=== PATIENT | female | born 1960 | race Caucasian/White ===

== ENCOUNTER 2021-03-11 11:50 | Emergency (ER) | payer BC, SELFPAY ==
--- NOTE | ~2021-03-11 | XR_ITS ---
EXAMINATION: XR chest 2V DATE: 03/11/2021 12:33 INDICATION: Cough. TECHNIQUE: Frontal and lateral views of the chest were obtained. COMPARISON: None. FINDINGS: There is mild scarring at the lung apices. No pleural effusion or pneumothorax. The heart s ize is normal. IMPRESSION: 1. Mild scarring at the lung apices. Reviewed, dictated and finalized at location A.
[2021-03-11 12:02] VITALS: BP 146/81; PULSE 87; RESP 18; TEMP 36.9; O2SAT 97
--- NOTE | 2021-03-11 12:25 | ED.UPPEXIN ---
HPI - Extremity Injury (Upper) General Chief Complaint: Upper Respiratory Infection Stated Complaint: Cough,Congestion,Ear Pain Time Seen by Provider: 03/11/21 12:13 Source: patient and RN notes reviewed Mode of arrival: ambulatory Limitations: no limitations History of Present Illness HPI narrative: Patient presents today complaining of a 2-day history of chest tightness with barky cough, shortness of breath, subjective fever, chills, body aches, rhinorrhea. Denies sore throat. Patient has had both COVID-19 vaccines. Denies any history of asthma or COPD. Denies history of seasonal allergies. She has been taking DayQuil for her symptoms without much relief. 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 Related Data Allergies Allergy/AdvReac Type Severity Reaction Status Date / Time No Known Allergies Allergy Mild Unverified 03/21/09 14:04 Review of Systems Review of Systems: Narrative: CONSTITUTIONAL: Denies sweats.+ Body aches, chills, subjective fever EYES: Denies visual changes, redness, or discharge. ENT: Denies sore throat. + Congestion rhinorrhea, bilateral ear pain. CARDIOVASCULAR: Denies chest pain, palpitations, or edema. RESPIRATORY: + Barky cough, chest tightness, shortness of breath GASTROINTESTINAL: Denies abdominal pain, nausea, vomiting, or diarrhea. GENITOURINARY: Denies dysuria or hematuria. SKIN: Denies rash, itching, or wounds. MUSCULOSKELETAL: Denies back pain, joint pain, or myalgia. NEUROLOGIC: Denies headache, numbness, tingling, or weakness. PSYCH: Denies depression or anxiety. PMFSH Comments At time of signature, I have reviewed and agree with nursing past medical, surgical, social and family history unless otherwise noted. Please see nursing chart for further information. There is no relevant family history pertinent to the presenting complaint Exam Narrative: Exam Narrative: GENERAL: Mildly ill-appearing, well-nourished, and in no acute distress. HEAD: Normocephalic, atraumatic. EYES: EOMI. No redness or drainage. Conjunctivae normal. ENT: Mucous membranes pink and moist. Nares congested with rhinorrhea. TMs normal bilaterally. Throat normal with clear postnasal drainage. Uvula midline. NECK: Normal AROM. Supple. No lymphadenopathy. CHEST: No respiratory distress. Mild inspiratory and expiratory wheezes throughout. Decreased aeration in the bases. HEART: Regular rate and rhythm. No murmur appreciated. Normal peripheral pulses. EXTREMITIES: Normal range of motion. No edema. SKIN: Warm, dry, no rash. Capillary refill normal. Normal skin turgor. NEURO: No focal deficits. Alert and oriented x3. Gait steady. PSYCH: Normal affect. No signs of depression or anxiety. Course Course Emergency Course: 1300-wheezing improved after DuoNeb. X-ray results and plan discussed. Vital Signs Vital signs: Vital Signs Temperature 98.4 F 03/11/21 12:02 Pulse Rate 87 03/11/21 12:02 Respiratory Rate 18 03/11/21 12:02 Blood Pressure 146/81 H 03/11/21 12:02 Pulse Oximetry 97 03/11/21 12:02 Temperature 98.4 F 03/11/21 12:02 Pulse Rate 87 03/11/21 12:02 Respiratory Rate 18 03/11/21 12:02 Blood Pressure 146/81 H 03/11/21 12:02 Pulse Oximetry 97 03/11/21 12:02 Reviewed. Pt has been instructed to follow up with her PCP regarding her elevated blood pressure today. MDM - Extremity Injury (Upper) Differential Diagnosis Differential diagnosis: Likely other (URI, bronchitis, rhinitis, seasonal allergies, otitis media, pneumonia) Imaging Data Radiologist's impression: ITS Impressions Chest X-Ray 03/11/21 12:36 IMPRESSION: 1. Mild scarring at the lung apices. Critical Care Time Critical Care Time Critical Care Time: No Discharge Plan Discharge Clinical Impression: Bronchitis Upper respiratory infection Qualifiers: URI type: unspecified URI Qualified Code(s): J06.9 - Acute upper respi
[2021-03-11] MEDS: ALBUTEROL SULFATE NEB 2.5 MG/3 ML INH INHALATION (12:35)
[2021-03-11] MEDS: IPRATROPIUM BR 0.02% INH SOLN 0.5 MG/2.5 ML VIAL INHALATION (12:35)
== END 2021-03-11 13:09 | disposition home or self-care (01) ==
PROVIDERS: Emergency Provider Nurse Practitioner
DX: J40 Bronchitis, not specified as acute or chronic (principal); J06.9 Acute upper respiratory infection, unspecified
CPT/HCPCS: 71046; 94640; 99213; G0463

== ENCOUNTER 2023-12-07 13:38 | Outpatient (CLI) | payer BC, SELFPAY ==
--- NOTE | ~2023-12-07 | MR_ITS ---
EXAMINATION: MR knee LT wo con DATE: 12/07/2023 14:13 INDICATION: S83.282A - Other tear of lateral meniscus, current injury... TECHNIQUE: Magnetic resonance imaging (MRI) of the left knee was performed without intravenous contra st. Sequences included axial PD-weighted FS FSE, coronal PD-weighted FSE and PD-weighted FS FSE, sagi ttal PD-weighted FSE, and sagittal T2-weighted FS FSE. COMPARISON: X-ray left knee 07/09/2023, images only FINDINGS: Medial compartment: Meniscus and cartilage intact. Lateral compartment: Apical tear of the meniscal body. Cartilage intact. Patellofemoral compartment: Cartilage and retinacula intact. Ligaments and tendons: The ACL is torn. The PCL, MCL, and LCL are intact. Remaining flexor and extensor are intact. Fluid: Moderate volume joint fluid. Osseous/other: No suspicious focal or diffuse marrow signal. Subchondral cysts at the intercondylar notch. Edema in the infrapatellar fat pad at the level of the intercondylar notch. IMPRESSION: Apical tear of the lateral meniscus. Complete ACL tear. Infrapatellar fat pad impingement. Moderate knee joint effusion. Reviewed, dictated and finalized at location K.
== END 2023-12-07 13:39 ==
PROVIDERS: PCP Nurse Practitioner Family; Visit Provider Orthopaedic Surgery
DX: S83.282A Other tear of lateral meniscus, current injury, left knee, initial encounter (principal); S83.512A Sprain of anterior cruciate ligament of left knee, initial encounter; M79.4 Hypertrophy of (infrapatellar) fat pad; M25.462 Effusion, left knee; X58.XXXA Exposure to other specified factors, initial encounter
CPT/HCPCS: 73721

== ENCOUNTER 2024-02-26 08:57 | Outpatient (CLI) | payer BC, SELFPAY ==
--- NOTE | 2024-02-26 11:00 | NEURO_ITS ---
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 # Normal Nerve Conduction Study; No Carpal Tunnel Syndrome or ulnar neuropathy. # Normal needle/EMG exam. # Clinical correlation recommended. Nerve Conduction Studies Anti Sensory Summary Table Stim Site NR Peak (ms) P-T Amp (?V) Site1 Site2 Delta-P (ms) Dist (cm) Arnold (m/s) Left Median Anti Sensory (2-3nd Digit) Wrist 3.1 54.1 Wrist 2-3nd Digit 3.1 14.0 45 Wrist 3.0 75.6 Wrist 2-3nd Digit 3.1 14.0 45 Right Median Anti Sensory (2-3nd Digit) Wrist 2.8 78.4 Wrist 2-3nd Digit 2.8 14.0 50 Wrist 2.9 66.3 Wrist 2-3nd Digit 2.8 14.0 50 Left Radial Anti Sensory (Base 1st Digit) Wrist 1.9 58.8 Wrist Base 1st Digit 1.9 0.0 Right Radial Anti Sensory (Base 1st Digit) Wrist 2.4 27.9 Wrist Base 1st Digit 2.4 0.0 Left Ulnar Anti Sensory (5th Digit) Wrist 2.7 60.3 Wrist 5th Digit 2.7 14.0 52 Right Ulnar Anti Sensory (5th Digit) Wrist 2.5 52.7 Wrist 5th Digit 2.5 14.0 56 Motor Summary Table Stim Site NR Onset (ms) O-P Amp (mV) Site1 Site2 Delta-0 (ms) Dist (cm) Arnold (m/s) Left Median Motor (Abd Poll Brev) Wrist 3.3 1.8 Elbow Wrist 5.8 32.0 55 Elbow 9.1 2.3 Right Median Motor (Abd Poll Brev) Wrist 3.2 3.6 Elbow Wrist 5.3 29.0 55 Elbow 8.5 1.1 Left Ulnar Motor (Abd Dig Minimi) Wrist 2.8 6.2 A Elbow Wrist 5.8 32.0 55 A Elbow 8.6 5.4 Right Ulnar Motor (Abd Dig Minimi) Wrist 2.4 4.7 A Elbow Wrist 6.0 33.0 55 A Elbow 8.4 3.7 F Wave Studies NR F-Lat (ms) L-R F-Lat (ms) Left Median (Mrkrs) (Abd Poll Brev) 29.78 0.53 Right Median (Mrkrs) (Abd Poll Brev) 29.24 0.53 Left Ulnar (Mrkrs) (Abd Dig Min) 28.09 0.67 Right Ulnar (Mrkrs) (Abd Dig Min) 28.76 0.67 EMG Side Muscle Nerve Root Ins Act Fibs Amp Dur Recrt Comment Right 1stDorInt Ulnar C8-T1 Nml Nml Nml Nml Nml Right Ext Indicis Radial (Post Int) C7-8 Nml Nml Nml Nml Nml Right Ext Digitorum Radial (Post Int) C7-8 Nml Nml Nml Nml Nml Right BrachioRad Radial C5-6 Nml Nml Nml Nml Nml Right PronatorTeres Median C6-7 Nml Nml Nml Nml Nml Right Abd Poll Brev Median C8-T1 Nml Nml Nml Nml Nml Right ABD Dig Min Ulnar C8-T1 Nml Nml Nml Nml Nml Left 1stDorInt Ulnar C8-T1 Nml Nml Nml Nml Nml Left Ext Indicis Radial (Post Int) C7-8 Nml Nml Nml Nml Nml Left Ext Digitorum Radial (Post Int) C7-8 Nml Nml Nml Nml Nml Left BrachioRad Radial C5-6 Nml Nml Nml Nml Nml Left PronatorTeres Median C6-7 Nml Nml Nml Nml Nml Left Abd Poll Brev Median C8-T1 Nml Nml Nml Nml Nml Left ABD Dig Min Ulnar C8-T1 Nml Nml Nml Nml Nml Right Biceps Musculocut C5-6 Nml Nml Nml Nml Nml Right Triceps Radial C6-7-8 Nml Nml Nml Nml Nml Right Deltoid Axillary C5-6 Nml Nml Nml Nml Nml Left Biceps Musculocut C5-6 Nml Nml Nml Nml Nml Left Triceps Radial C6-7-8 Nml Nml Nml Nml Nml Left Deltoid Axillary C5-6 Nml Nml Nml Nml Nml MTDD
== END 2024-02-26 08:58 | disposition home or self-care (01) ==
LOC: ANHNEURO 08:57
PROVIDERS: PCP Nurse Practitioner Family; Visit Provider Orthopaedic Surgery
DX: G56.03 Carpal tunnel syndrome, bilateral upper limbs (principal)
CPT/HCPCS: 95886; 95911